=== PATIENT | female | born 1985 | race African-American/Black ===

== ENCOUNTER 2021-06-13 09:49 | Emergency (ER) | payer SELFPAY ==
[~2021-06-13] VITALS: Ht 165.1 cm; Wt 73.5 kg
--- NOTE | 2021-06-13 10:13 | NUR ---
Sri laird in [facility] - 06/13/21 at 1016 by [id number] CALLED X1. NO SHOW.
[2021-06-13 10:18] VITALS: BP 112/63
--- NOTE | 2021-06-13 10:22 | NUR ---
PARAG. HANDED ON URINE CUP.
[2021-06-13 13:20] LABS: BASOPHILS % (AUTO) 0.1 % (0.0-2.0); HEMATOCRIT 36.3 % (36-48); HEMOGLOBIN 12.4 g/dL (12.0-16.0); LYMPHOCYTES # (AUTO) 0.8 K/uL (2.5-16.5); LYMPHOCYTES % (AUTO) 4.6 % (20.5-51.1); MEAN CORPUSCULAR HEMOGLOBIN 28 pg (27-31); MEAN CORPUSCULAR HGB CONC 34 g/dL (33-37); MEAN CORPUSCULAR VOLUME 81.3 fL (80-94); MONOCYTES # (AUTO) 0.6 K/uL (0.8-1.0); MONOCYTES % (AUTO) 3.7 % (1.7-9.3); NEUTROPHILS # (AUTO) 15.1 K/uL (1.8-7.7); NEUTROPHILS % (AUTO) 91.6 % (42.2-75.2); PLATELET COUNT (AUTO) 273 K/uL (140-450); RED BLOOD CELL COUNT(AUTO) 4.47 MIL/uL (4.20-5.40); RED CELL DISTRIBUTION WIDTH 14.4 % (11.6-13.7); WHITE BLOOD COUNT (AUTO) 16.5 K/uL (4.8-10.8)
[2021-06-13 13:34] LABS: ALBUMIN 3.8 g/dL (3.4-5.0); ANION GAP 11.1 (8-16); CARBON DIOXIDE 27.3 mmol/L (21-32); CREATININE 0.8 mg/dL (0.6-1.3); POTASSIUM 3.4 mmol/L (3.5-5.1); TOTAL BILIRUBIN 0.6 mg/dL (0.0-1.0)
--- NOTE | 2021-06-13 14:20 | NUR ---
DR WOODS ATTEMPTED TO CALL PT IN LOBBY. NO ANSWER
--- NOTE | 2021-06-13 14:44 | NUR ---
PATIENT LEFT WITHOUT BEING SEEN BY DR. WOODS. NO FURTHER CARE PROVIDED FOR PATIENT.
--- NOTE | 2021-06-13 14:44 | NUR ---
ATTEMPTED TO CALL PT IN LOBBY. NO ANSWER
--- NOTE | 2021-06-13 15:13 | NUR ---
ATTEMPTED TO CALL PATIENT FOR DR. WOODS. NO ANSWER AND VOICEMAIL HAS BEEN LEFT
[2021-06-13] MEDS ORDERED: ACET-5629 PO (21:18)
[2021-06-13] MEDS ORDERED: ONDA-24 SL (21:19)
[2021-06-13] MEDS ORDERED: DOXY-487 PO ×2 (21:56→22:07)
== END 2021-06-13 14:44 | disposition left against medical advice (07) ==
LOC: MED 09:49
DX: N73.9 Female pelvic inflammatory disease, unspecified (principal); R11.2 Nausea with vomiting, unspecified; Z88.0 Allergy status to penicillin; Z79.899 Other long term (current) drug therapy
CPT/HCPCS: 36415; 80053; 81002; 81025; 85025; 99283

== ENCOUNTER 2021-06-13 15:42 | Emergency (ER) | payer SELFPAY ==
[~2021-06-13] VITALS: Ht 165.1 cm; Wt 73.5 kg
[2021-06-13 16:25] VITALS: BP 112/63
--- NOTE | 2021-06-13 17:11 | NUR ---
Pt ambulated to bed 9.
[2021-06-13] MEDS ORDERED: ONDANSETRON 4 MG/2 ML VIAL IVP ONE (17:15)
[2021-06-13] MEDS ORDERED: MORPHINE SULFATE 4 MG/ML SYR IVP ONE (17:15)
[2021-06-13] MEDS ORDERED: NACL 0.9% 1,000 ML IV ONE (17:15)
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
--- NOTE | 2021-06-13 18:28 | NUR ---
PT TAKEN TO CT VIA W/C
--- NOTE | 2021-06-13 18:43 | NUR ---
BACK FROM CT VIA W/C
--- NOTE | 2021-06-13 19:20 | NUR ---
REPORT AND TRANSFER OF CARE GIVEN TO RACHEL CANALES.
--- NOTE | 2021-06-13 19:20 | NUR ---
REPORT RECIEVED FROM RACHEL PAREDES FOR CONTINUITY OF CARE.
--- NOTE | 2021-06-13 19:46 | NUR ---
WITH CONSENT FROM PT, SPOKE WITH PTS MOTHER, TAZ ([phone]). PROVIDED UPDATE. WILL CALL BACK WITH FUTURE UPDATES.
--- NOTE | 2021-06-13 20:21 | NUR ---
PT C/O 04/15 PAIN. JAYCOB WOODS AWARE, STATES SHE WILL GO SPEAK WITH PATIENT SHORTLY.
[2021-06-13] MEDS ORDERED: ACET-5629 PO (21:18)
[2021-06-13] MEDS ORDERED: ONDA-24 SL (21:19)
--- NOTE | 2021-06-13 21:19 | NUR ---
VERBAL ORDER MD WOODS FOR URINALYSIS PROFILE.
--- NOTE | 2021-06-13 21:25 | NUR ---
PT AMBULATED TO RESTROOM AND BACK WITH STEADY AND EVEN GAIT.
[2021-06-13 21:35] LABS: APPEARANCE,URINE CLEAR (CLEAR); BILIRUBIN,URINE NEGATIVE (NEGATIVE); BLOOD, URINE 1+ (NEGATIVE); LEUKOCYTE ESTERASE ,URINE 1+ (NEGATIVE); NITRITE, URINE NEGATIVE (NEGATIVE); UGLUCOSE NEGATIVE (NEGATIVE)
[2021-06-13] MEDS ORDERED: oxyCODONE/APAP 5/325 MG 1 TAB TAB PO ONE (21:40)
[2021-06-13 21:42] LABS: COLOR,URINE STRAW (YELLOW)
[2021-06-13 21:43] LABS: RBC,URINE 0-5 /HPF (0-5); WBC,URINE 0-5 /HPF (0-5)
[2021-06-13] MEDS ORDERED: oxyCODONE/APAP 5/325 MG 1 TAB TAB ONE (21:44)
[2021-06-13] MEDS ORDERED: DOXY-487 PO ×2 (21:56→22:07)
[2021-06-13] MEDS ORDERED: GENTAMICIN 80 MG/2 ML VIAL IM ONE (22:00)
--- NOTE | 2021-06-13 22:23 | NUR ---
ATTEMPTED TO CALL PTS MOTHER, TAZ, WITH UPDATE. NO ANSWER.
--- NOTE | 2021-06-13 22:56 | NUR ---
IV TO LAC D/C'D PRIOR TO DISCHARGE.
[2021-06-13 22:57] VITALS: BP 105/51
--- NOTE | 2021-06-13 22:57 | NUR ---
Patient discharged with v/s stable. Written and verbal after care instructions given and explained. Patient alert, oriented and verbalized understanding of instructions. Ambulatory with steady gait. All questions addressed prior to discharge. ID band removed. Patient advised to follow up with PMD. Rx of PERCOCET, DOXYCYLANE HYCLATE, ZOFRAN ODT given. Patient educated on indication of medication including possible reaction and side effects. Opportunity to ask questions provided and answered.
== END 2021-06-13 22:57 | disposition home or self-care (01) ==
LOC: MED 15:42
DX: R10.84 Generalized abdominal pain (principal); R11.0 Nausea; Z88.0 Allergy status to penicillin; Z79.899 Other long term (current) drug therapy
CPT/HCPCS: 74177; 81001; 81025; 87086; 96361; 96372; 96374; 96375; 99285; J1580; J2270; J2405; J7030; Q9967

== ENCOUNTER 2021-09-07 09:50 | Emergency (ER) | payer OTHER, MEDICAID ==
[~2021-09-07] VITALS: Ht 165.1 cm; Wt 74.8 kg
[~2021-09-07 09:50] MED LIST: ACET-5629 PO; DOXY-487 PO; ONDA-188 SL
[2021-09-07 10:00] VITALS: BP 116/68
--- NOTE | 2021-09-07 10:05 | NUR ---
PT TO WAIT IN LOBBY.
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
[2021-09-07] MEDS ORDERED: CYCLOBENZAPRINE 10 MG TAB PO ONE (10:15)
[2021-09-07] MEDS ORDERED: IBUPROFEN 600 MG TAB PO ONE (10:15)
[2021-09-07] MEDS ORDERED: ACETAMINOPHEN 325 MG TAB PO ONE (10:15)
--- NOTE | 2021-09-07 10:30 | NUR ---
PT TAKEN TO XR VIA W/C.
--- NOTE | 2021-09-07 10:41 | NUR ---
PT TAKEN TO LOBBY VIA W/C.
--- NOTE | 2021-09-07 11:55 | NUR ---
DR. HA WITH PT FOR REEVALUATION.
[2021-09-07] MEDS ORDERED: ACET-9527 PO (12:11)
[2021-09-07] MEDS ORDERED: IBUP-2213 PO (12:11)
[2021-09-07 12:17] VITALS: BP 119/68
--- NOTE | 2021-09-07 12:19 | NUR ---
Patient discharged with v/s stable. Written and verbal after care instructions given THORACIC STRAIN AND CERVICAL STRAIN and explained. Patient alert, oriented and verbalized understanding of instructions. Ambulatory with steady gait. All questions addressed prior to discharge. ID band removed. Patient advised to follow up with PMD. Rx of IBUPROFEN ND NORCO given. Patient educated on indication of medication including possible reaction and side effects. Opportunity to ask questions provided and answered.
== END 2021-09-07 12:19 | disposition home or self-care (01) ==
LOC: MED 09:50
DX: S13.4XXA Sprain of ligaments of cervical spine, initial encounter (principal); M54.6 Pain in thoracic spine; Z88.0 Allergy status to penicillin; Z79.899 Other long term (current) drug therapy; V49.40XA Driver injured in collision with unspecified motor vehicles in traffic accident, initial encounter; Y93.89 Activity, other specified; Y92.89 Other specified places as the place of occurrence of the external cause; Y99.8 Other external cause status
CPT/HCPCS: 72040; 72072; 99284

== ENCOUNTER 2023-09-13 12:35 | Emergency (ER) | payer MEDICAID, OTHER ==
[~2023-09-13] VITALS: Ht 165.1 cm; Wt 82.1 kg
[~2023-09-13 12:35] MED LIST changes: +ACET-9527 PO; +IBUP-2213 PO
[2023-09-13 13:07] VITALS: BP 115/63; PULSE 79; RESP 18; TEMP 98.9; O2SAT 98
[2023-09-13] MEDS ORDERED: NAPR-54 PO (16:26)
[2023-09-13 16:30] VITALS: BP 112/60; PULSE 80; RESP 12; TEMP 97.9; O2SAT 99
== END 2023-09-13 16:30 | disposition home or self-care (01) ==
LOC: MED 12:35
DX: M67.441 Ganglion, right hand (principal); Z79.899 Other long term (current) drug therapy
CPT/HCPCS: 73130; 81025; 99283

== ENCOUNTER 2024-06-02 07:46 | Emergency (ER) | payer OTHER ==
[~2024-06-02] VITALS: Ht 165.1 cm; Wt 88.5 kg
[~2024-06-02 07:46] MED LIST changes: +BENZ-300 PO; +NAPR-337 PO; +PROM118S5 PO
[2024-06-02 08:12] VITALS: BP 98/56; PULSE 65; RESP 16; TEMP 98; O2SAT 97
[2024-06-02] MEDS: FLUORESCEIN OPTH STRIP 1 MG OP ONE (08:30)
[2024-06-02] MEDS: TETRACAINE HCL/PF 0.5% OPTH 4 ML BTL OP ONE (08:30)
[2024-06-02] MEDS ORDERED: GENT5DRO LEFT EYE (09:19)
[2024-06-02] MEDS ORDERED: KETO5SOL OP (09:19)
[2024-06-02 09:33] VITALS: BP 98/56; PULSE 65; RESP 16; TEMP 98; O2SAT 97
== END 2024-06-02 09:36 | disposition home or self-care (01) ==
LOC: MED 07:46
DX: S05.02XA Injury of conjunctiva and corneal abrasion without foreign body, left eye, initial encounter (principal); Z79.1 Long term (current) use of non-steroidal anti-inflammatories (NSAID); Z79.899 Other long term (current) drug therapy; Z88.0 Allergy status to penicillin; X58.XXXA Exposure to other specified factors, initial encounter; Y93.89 Activity, other specified; Y92.89 Other specified places as the place of occurrence of the external cause; Y99.8 Other external cause status
CPT/HCPCS: 99283

== ENCOUNTER 2024-06-09 07:46 | Emergency (ER) | payer OTHER ==
[~2024-06-09] VITALS: Ht 167.6 cm; Wt 86.2 kg
[~2024-06-09 07:46] MED LIST changes: +GENT5DRO LEFT EYE; +KETO5SOL OP
[2024-06-09 08:05] VITALS: BP 110/48; PULSE 72; RESP 18; TEMP 97.8; O2SAT 72
--- NOTE | 2024-06-09 08:10 | NUR ---
PT AMBULATED TO BED 5
[2024-06-09] MEDS: TETRACAINE HCL/PF 0.5% OPTH 4 ML BTL OP ONE (08:15)
[2024-06-09] MEDS: FLUORESCEIN OPTH STRIP 1 MG OP ONE (08:30)
--- NOTE | 2024-06-09 09:25 | NUR ---
PT DENIES N/V/D; SKIN IS INTACT, PINK/WARM/DRY; AAOX4, PERRL, WITH EVEN AND STEADY GAIT; LUNGS CLEAR BL, BREATHING UNLABORED; HR EVEN AND REGULAR, BL PERIPHERAL PULSES PRESENT; BS ACTIVE X4, NO TENDERNESS TO PALPATION, NO HEPATOSPLENOMEGALLY PALPATED, RESONANT TO PERCUSSION; PT DENIES ANY FEVER, CP, SOB, OR COUGH AT THIS TIME; PT STATES 0/10 PAIN AT THIS TIME; VSS; PATIENT POSITIONED FOR COMFORT; HOB ELEVATED; BEDRAILS UP X2; BED DOWN. CALL LIGHT WITHIN REACH ALLERGIES PENCILLINS
--- NOTE | 2024-06-09 09:25 | NUR ---
Patient discharged with v/s stable. Written and verbal after care instructions given and explained. Patient verbalized understanding. Ambulatory with steady gait. All questions addressed prior to discharge. Advised to follow up with PMD.
== END 2024-06-09 09:25 | disposition home or self-care (01) ==
LOC: MED 07:46
DX: S05.02XA Injury of conjunctiva and corneal abrasion without foreign body, left eye, initial encounter (principal); Z79.899 Other long term (current) drug therapy; Z88.0 Allergy status to penicillin; X58.XXXA Exposure to other specified factors, initial encounter; Y92.89 Other specified places as the place of occurrence of the external cause; Y93.89 Activity, other specified; Y99.8 Other external cause status
CPT/HCPCS: 99283